=== PATIENT | female | born 1990 | race American Indian/Alaskan Native ===

== ENCOUNTER 2020-01-13 12:53 | Emergency (ER) | payer MEDICAID, OTHER ==
[2020-01-13 13:29] VITALS: BP 112/76
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
--- NOTE | 2020-01-13 16:45 | XRay Report ---
CERVICAL SPINE 3 VIEWS INDICATION / CLINICAL INFORMATION: pain. COMPARISON: None available. FINDINGS: VERTEBRAE: No acute fracture. Straightening of the normal cervical lordosis which could be positional . DISC SPACES / FACET JOINTS:No significant abnormality. PARASPINAL SOFT TISSUES:No significant abnormality. ADDITIONAL FINDINGS: None. Signer Name: Rudi Rivera MD Signed: 01/13/2020 4:41 PM Workstation Name: [id number]
--- NOTE | 2020-01-13 16:46 | XRay Report ---
RIGHT FOREARM 2 VIEW(S) INDICATION / CLINICAL INFORMATION: pain/swelling COMPARISON: None available. FINDINGS: BONES / JOINT(S): No acute fracture or subluxation. No significant arthritis. SOFT TISSUES: No significant abnormality. ADDITIONAL FINDINGS: None. Signer Name: Rudi Rivera MD Signed: 01/13/2020 4:41 PM Workstation Name: [id number]
[2020-01-13] MEDS ORDERED: IBUPROFEN 800 MG TAB PO ONE (18:40)
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
== END 2020-01-13 18:56 | disposition home or self-care (01) ==
LOC: ED 12:53
DX: S16.1XXA Strain of muscle, fascia and tendon at neck level, initial encounter (principal); S59.911A Unspecified injury of right forearm, initial encounter; Z79.899 Other long term (current) drug therapy; Z98.890 Other specified postprocedural states; V49.49XA Driver injured in collision with other motor vehicles in traffic accident, initial encounter; Y92.410 Unspecified street and highway as the place of occurrence of the external cause; Y93.89 Activity, other specified; Y99.8 Other external cause status
CPT/HCPCS: 72040

== ENCOUNTER 2020-09-07 03:33 | Emergency (ER) | payer SELFPAY ==
[2020-09-07] MEDS ORDERED: SODIUM CHLORIDE 0.9% 1000 ML 1,000 ML IV ONE (04:54)
[2020-09-07] MEDS ORDERED: MORPHINE 4 MG/1 ML INJ IV ONE ×2 (04:54→10:16)
[2020-09-07] MEDS ORDERED: ONDANSETRON 4 MG/2 ML INJ IV ONE ×2 (04:54→09:31)
[2020-09-07] MEDS ORDERED: FAMOTIDINE 20 MG/2 ML INJ IV ONE ×2 (04:54→06:11)
[2020-09-07] MEDS ORDERED: MORPHINE 4 MG/1 ML INJ ONE (06:11)
[2020-09-07] MEDS ORDERED: ONDANSETRON 4 MG/2 ML INJ ONE (06:11)
[2020-09-07] MEDS ORDERED: SODIUM CHLORIDE 0.9% 1000 ML 1,000 ML ONE (06:11)
--- NOTE | 2020-09-07 06:53 | Ultrasound Report ---
Abdominal ultrasound INDICATION: Pain FINDINGS: Aorta and IVC appear normal. Pancreas appears normal. Right kidney measures 10.3 cm. No gal lstones or gallbladder wall thickening. Liver appears normal. Portal vein is patent. IMPRESSION: No acute findings. Signer Name: Neil Rausch MD Signed: 09/07/2020 6:48 AM Workstation Name: [id number]
--- NOTE | 2020-09-07 06:58 | Emergency Department Report ---
<OMAR SALMERON - Last Filed: 09/07/20 06:53> ED N/V/D HPI - General Chief complaint: Nausea/Vomiting/Diarrhea PUI?: No Source: patient Mode of arrival: Ambulatory Limitations: No Limitations - History of Present Illness Initial comments: Patient is a A0 30-year-old -[place] female with a history of GERD who presents to the ED with acute onset persistent intractable nausea and vomiting with epigastric pain that radiates to the right upper quadrant area for the last 2 weeks, worse with any food intake and especially with vomiting. Patient states that she does not take any medications for GERD at this time. Patient states that she has not been able to keep anything down especially in the last 5 days. Patient denies dizziness, syncope, chest pain, shortness of breath, change in vision, diarrhea, fever, chills, cough, dysuria, urinary frequency and urgency, back pain, hematemesis, hematochezia or neck pain. MD complaint: nausea, vomiting, abdominal pain (Epigastric) -: Sudden, week(s) (2) Description of Vomiting: food contents, watery Associated Abdominal Pain: Yes (Epigastric pain) Location: RUQ, epigastric Radiation: none Severity: severe Pain Scale: 8 Quality: cramping, aching, sharp Consistency: constant Improves with: none Worsens with: eating, medication Context: possible food poisoning, other (GERD complications) Associated Symptoms: denies other symptoms, myalgias, loss of appetite, malaise, nausea/vomiting. denies: chest pain, cough, diaphoresis, fever/chills, h eadaches, rash, dysuria, shortness of breath, syncope, weakness, other - Related Data Home Medications Medication Instructions Recorded Confirmed Last Taken Vit-Fe Fumar-FA [ 1 tab PO QDAY 06/07/16 06/07/16 10/24/15 Vitamin] Previous Rx's Medication Instructions Recorded Last Taken Type Lidocain2.5%/Prilocai2.5% [Emla] 5 gm TP ONCE #1 tube 06/06/16 Unknown Rx Docusate Sodium [Colace] 100 mg PO BID PRN #60 capsule 06/07/16 Unknown Rx Ferrous Sulfate [Feosol 325 MG tab] 325 mg PO BID #60 tablet 06/07/16 Unknown Rx Ibuprofen [Motrin 800 MG tab] 800 mg PO TID PRN #21 tablet 01/13/20 Unknown Rx methOCARBAMOL [Robaxin TAB] 1,500 mg PO TID PRN #24 tablet 01/13/20 Unknown Rx Dicyclomine [Bentyl] 20 mg PO QID #20 tablet 09/07/20 Unknown Rx Famotidine [Pepcid] 20 mg PO BID #20 tablet 09/07/20 Unknown Rx Metoclopramide [Reglan] 10 mg PO TID #20 tab 09/07/20 Unknown Rx Omeprazole 40 mg PO DAILY #20 capsule. 09/07/20 Unknown Rx Sucralfate [Carafate] 1 gm PO Q6HR #20 udc 09/07/20 Unknown Rx Allergies Allergy/AdvReac Type Severity Reaction Status Date / Time No Known Allergies Allergy Verified 01/13/20 13:19 ED Review of Systems Constitutional: malaise, weakness. denies: chills, fever Eyes: denies: eye pain, eye discharge, vision change ENT: denies: ear pain, throat pain Respiratory: denies: cough, shortness of breath, wheezing Cardiovascular: denies: chest pain, palpitations Endocrine: no symptoms reported Gastrointestinal: abdominal pain (Epigastric pain), nausea, vomiting. denies: diarrhea Genitourinary: denies: urgency, dysuria, discharge Musculoskeletal: denies: back pain, joint swelling, arthralgia Skin: denies: rash, lesions Neurological: denies: headache, weakness, paresthesias Psychiatric: denies: anxiety, depression Hematological/Lymphatic: denies: easy bleeding, easy bruising ED Past Medical Hx - Past Medical History Previous Medical History?: Yes Hx Hypertension: No Hx Congestive Heart Failure: No Hx Diabetes: No Hx Deep Vein Thrombosis: No Hx GERD: Yes Hx Renal Disease: No Hx Sickle Cell Disease: No Hx Seizures: No Hx Asthma: No Hx COPD: No Hx HIV: No - Surgical History Additional Surgical History: HERNIA - Social History Smoking Status: Never Smoker - Medications Home Medications: Home Medications Medication Instructions Recorded Confirmed Last Taken Type Lidocain2.5%/Prilocai2.5% [Emla] 5 gm TP ONCE #1 tube 06/06/16 Unknown Rx Docusate Sodium [Colace] 100 mg PO BID PRN #60 capsule 06/07/16 Unknown Rx Ferrous Sulfate [Feosol 325 MG tab] 325 mg PO BID #60 tablet 06/07/16 Unknown Rx Vit-Fe Fumar-FA [ 1 tab PO QDAY 06/07/16 06/07/16 10/24/15 History Vitamin] Ibuprofen [Motrin 800 MG tab] 800 mg PO TID PRN #21 tablet 01/13/20 Unknown Rx methOCARBAMOL [Robaxin TAB] 1,500 mg PO TID PRN #24 tablet 01/13/20 Unknown Rx Dicyclomine [Bentyl] 20 mg PO QID #20 tablet 09/07/20 Unknown Rx Famotidine [Pepcid] 20 mg PO BID #20 tablet 09/07/20 Unknown Rx Metoclopramide [Reglan] 10 mg PO TID #20 tab 09/07/20 Unknown Rx Omeprazole 40 mg PO DAILY #20 capsule. 09/07/20 Unknown Rx Sucralfate [Carafate] 1 gm PO Q6HR #20 udc 09/07/20 Unknown Rx ED Physical Exam - General Limitations: No Limitations General appearance: alert, in no apparent distress - Head Head exam: Present: atraumatic, normocephalic, normal inspection - Eye Eye exam: Present: normal appearance, PERRL, EOMI Pupils: Present: normal accommodation - ENT ENT exam: Present: normal exam, normal orophraynx, mucous membranes moist, TM's normal bilaterally, normal external ear exam - Neck Neck exam: Present: normal inspection, full ROM. Absent: tenderness - Respiratory Respiratory exam: Present: normal lung sounds bilaterally. Absent: respiratory distress, wheezes, rales, rhonchi, chest wall tenderness, decreased breath sounds, prolonged expiratory - Cardiovascular Cardiovascular Exam: Present: regular rate, normal rhythm, normal heart sounds. Absent: systolic murmur, diastolic murmur, rubs, gallop - GI/Abdominal GI/Abdominal exam: Present: soft, tenderness (Palpable epigastric tenderness), normal bowel sounds. Absent: guarding, rebound, hyperactive bowel sounds, hypoactive bowel sounds, organomegaly - Extremities Exam Extremities exam: Present: normal inspection, full ROM, normal capillary refill - Back Exam Back exam: Present: normal inspection, full ROM. Absent: tenderness, CVA tenderness (R), CVA tenderness (L), muscle spasm, paraspinal tenderness, vertebral tenderness - Neurological Exam Neurological exam: Present: alert, oriented X3, CN II-XII intact, normal gait, reflexes normal - Psychiatric Psychiatric exam: Present: normal affect, normal mood - Skin Skin exam: Present: warm, dry, intact, normal color. Absent: rash ED Medical Decision Making - Medical Decision Making This is a A0 30-year-old -[place] female with a history of GERD who presents to the ED with acute onset persistent intractable nausea and vomiting with epigastric pain that radiates to the right upper quadrant area for the last 2 weeks, worse with any food intake and especially with vomiting. Patient states that she does not take any medications for GERD at this time. Patient states that she has not been able to keep anything down especially in the last 5 days. In the ED, patient is alert and oriented x3 and is not in any distress. Labs were drawn and patient was treated for nausea and vomiting and also given antacids and normal saline 1 L IV bolus. Gallbladder ultrasound showed no acute abnormalities. Lab test results pending at shift change. Patient care was transferred to Ms. Ana Camp PA-C at shift change. She shall review all lab test results, reevaluate the patient and disposition the patient accordingly. - Differential Diagnosis Gastroenteritis; GERD; gastritis; ; UTI; pancreatitis; dehydration ED Disposition Clinical Impression: Nausea and vomiting in adult patient, Viral gastroenteritis GERD (gastroesophageal reflux disease) Qualifiers: Esophagitis presence: esophagitis presence not specified Qualified Code(s): K21.9 - Gastro-esophageal reflux disease without esophagitis Abdominal pain Qualifiers: Abdominal location: epigastric Qualified Code(s): R10.13 - Epigastric pain Disposition: TO HOME OR SELFCARE Is pt being admited?: No Does the pt Need Aspirin: No Condition: Stable Instructions: Viral Gastroenteritis, Adult, [id number], Nausea and Vomiting, Adult, [id number], Abdominal Pain, Adult, [id number] Additional Instructions: Take Reglan as directed for nausea/vomiting. Take Pepcid, Carafate, and Omeprazole as directed. Take Bentyl as directed for intestinal discomfort. Rest. Drink plenty of fluids. Gradually advance diet slowly as tolerated. Follow-up with primary care provider and/or air intelligence specialist this week. Call today to schedule an appointment. See referral information below. Return to the emergency department immediately for new or worsening symptoms. Prescriptions: Dicyclomine [Bentyl] 20 mg PO QID #20 tablet Sucralfate [Carafate] 1 gm PO Q6HR #20 udc Omeprazole 40 mg PO DAILY #20 capsule. Famotidine [Pepcid] 20 mg PO BID #20 tablet Metoclopramide [Reglan] 10 mg PO TID #20 tab Referrals: CHELLE NAVARRO MD [Staff Physician] - 3-5 Days [facility] [Outside] - 3-5 Days [facility] [Outside] - 3-5 Days [facility] [Outside] - 3-5 Days [facility] [Provider Group] - 3-5 Days [facility] [Provider Group] - 3-5 Days Forms: Work/School Release Form(ED) <ANA CAMP - Last Filed: 09/07/20 12:01> ED Review of Systems ROS: Stated complaint: Other details as noted in HPI ED Course Vital Signs 09/07/20 09/07/20 03:54 09:39 Temperature 98.0 F 98.5 F Pulse Rate 94 H 82 Respiratory 18 18 Rate Blood Pressure 132/97 Blood Pressure 140/90 [Left] O2 Sat by Pulse 98 100 Oximetry ED Medical Decision Making - Lab Data Result diagrams: 09/07/20 09:17 09/07/20 09:17 - Medical Decision Making Care of patient transferred by Omar Salmeron PA-C at shift change pending lab results. She was observed in the emergency department for several hours due to delay in receiving laboratory results. On reevaluation, patient is resting comfortably. She is tolerating oral intake without difficulty. Labs consistent with dehydration; patient was given IV fluids as well as antiemetics/analgesics with improvement. Lipase is normal. test is negative. Patient has previously been diagnosed with GERD/esophagitis but has not been compliant with medications. Abdominal exam is benign; no clinical indication for further diagnostic work-up on an emergent basis at this time. Patient will be discharged home with appropriate symptomatic treatment and restarted on H2 patrizia/PPI therapy. Emphasized importance of following up with primary care provider and/or air intelligence specialist this week. Patient expressed understanding and is agreeable to plan of care. Dietary modifications discussed. Strict return precautions provided. Repeat exam is unremarkable and benign. History, exam, diagnostic testing, and current condition do not suggest worrisome pathology to warrant further testing, continued ED treatment, admission, or surgical evaluation at this point. Given the low probability of a significant medical illness, it would be more likely to result in harm than benefit to perform further testing at this stage. Discussed findings, presumptive diagnosis, need for follow-up and specific signs/symptoms that should prompt immediate return to the emergency department. Instructions were explained in detail to the patient in addition to giving written discharge information. Patient expressed understanding and was given the opportunity to ask questions, all of which were satisfactorily answered prior to discharge home. Of note, labs were ordered at 3:56. Assumed care of patient at 07:00, no lab results available. Spoke with lab at 9:30, lab results still not available. Final results became available at 11:33. Critical care attestation.: If time is entered above; I have spent that time in minutes in the direct care of this critically ill patient, excluding procedure time. ED Disposition Is pt being admited?: No Does the pt Need Aspirin: No Time of Disposition: 11:54
[2020-09-07 08:25] LABS: Bilirubin,Urine NEG (Negative); Blood,Urine NEG (Negative); Color,Urine Yellow (Yellow); Mucus,Urine 3+ /HPF; Protein,Urine >500 mg/dL (Negative)
[2020-09-07 08:26] LABS: HCG Qualitative,Urine Negative (Negative)
[2020-09-07 09:40] VITALS: BP 140/90
[2020-09-07 10:29] LABS: Basophils % (Auto) 0.2 % (0.0-1.8); Hematocrit 41.3 % (30.3-42.9); Hemoglobin 13.5 gm/dl (10.1-14.3); Lymphocytes # (Auto) 1.9 K/mm3 (1.2-5.4); Lymphocytes % (Auto) 21.3 % (13.4-35.0); Mean Corpuscular HGB Conc 33 % (30-34); Mean Corpuscular Volume 84 fl (79-97); Monocytes # (Auto) 0.3 K/mm3 (0.0-0.8); Monocytes % (Auto) 3.8 % (0.0-7.3); Platelet Count 159 K/mm3 (140-440); Red Cell Distribution Width 14.1 % (13.2-15.2)
[2020-09-07 11:11] LABS: Alanine Aminotransferase 10 units/L (7-56); Albumin 4.6 g/dL (3.9-5); Blood Urea Nitrogen 7 mg/dL (7-17); Calcium 9.3 mg/dL (8.4-10.2); Hemolysis Index 4
[2020-09-07 11:19] LABS: BUN/Creatinine Ratio 10
== END 2020-09-07 12:35 | disposition home or self-care (01) ==
LOC: ED 03:33
DX: K21.9 Gastro-esophageal reflux disease without esophagitis (principal); R11.2 Nausea with vomiting, unspecified; Z79.899 Other long term (current) drug therapy
CPT/HCPCS: 36415; 76705; 80053; 81001; 81025; 83690; 85025; 96361; 96374; 96375; 96376; 99284; J2270; J2405; J7030